=== PATIENT | female | born 1960 | race Caucasian/White ===

== ENCOUNTER → 2018-06-08 | Outpatient (REF) | payer BC ==
[2018-06-08 17:11] LABS: IMMUNOGLOBULIN A 47.5 MG/DL (70-400); IMMUNOGLOBULIN G 661 MG/DL (681-1648)
[2018-06-08 17:25] LABS: IMMUNOGLOBULIN M 15.3 MG/DL (40-230)
== END ==
LOC: M SFHCLERA 11:44
DX: R76.8 Other specified abnormal immunological findings in serum (principal)
CPT/HCPCS: 82784

== ENCOUNTER → 2018-06-18 | Outpatient (CLI) | payer BC | LOC: M RAD 10:19 | DX: Z12.31 Encounter for screening mammogram for malignant neoplasm of breast (principal); Z79.3 Long term (current) use of hormonal contraceptives | CPT/HCPCS: 77067 ==

== ENCOUNTER 2018-06-22 09:28 | Day surgery (SDC) | payer BC ==
[2018-06-22] MEDS: NS 1,000 ML IV (06:00)
[2018-06-22] MEDS ORDERED: PROPOFOL 500 MG/50 ML VIAL As Ordered (09:45)
[2018-06-22] MEDS ORDERED: LIDOCAINE 2% INJ 100 MG/5 ML SDV (FOR ANES.) As Ordered (09:57)
[2018-06-22] MEDS ORDERED: fentaNYL 100 MCG/2 ML INJECTION (J3010) As Ordered (09:58)
[2018-06-22] MEDS ORDERED: PANTOPRAZOLE 40MG INJ (PROTONIX) (C9113) IV (12:00)
== END 2018-06-22 12:30 | disposition home or self-care (01) ==
LOC: M OPP 09:28
DX: K59.00 Constipation, unspecified (principal); K64.8 Other hemorrhoids; R10.13 Epigastric pain; R14.0 Abdominal distension (gaseous); K25.9 Gastric ulcer, unspecified as acute or chronic, without hemorrhage or perforation; E78.5 Hyperlipidemia, unspecified; E05.90 Thyrotoxicosis, unspecified without thyrotoxic crisis or storm; E03.9 Hypothyroidism, unspecified; M19.90 Unspecified osteoarthritis, unspecified site; M54.2 Cervicalgia; F32.9 Major depressive disorder, single episode, unspecified; G43.909 Migraine, unspecified, not intractable, without status migrainosus; Z78.0 Asymptomatic menopausal state; G47.30 Sleep apnea, unspecified; G47.00 Insomnia, unspecified; R06.83 Snoring; M25.50 Pain in unspecified joint; J32.9 Chronic sinusitis, unspecified; Z92.3 Personal history of irradiation; F17.210 Nicotine dependence, cigarettes, uncomplicated; Z79.82 Long term (current) use of aspirin; Z79.899 Other long term (current) drug therapy; Z80.7 Family history of other malignant neoplasms of lymphoid, hematopoietic and related tissues
CPT/HCPCS: 45378

== ENCOUNTER → 2018-07-04 | Outpatient (REF) | payer BC ==
[2018-07-04 15:51] LABS: BASO % 0.7 % (0.0-1.0); EOS # 0.4 10^3/uL (0.0-0.50); EOS % 6.3 % (0.0-3.0); HEMATOCRIT 38.8 % (36.0-47.0); HEMOGLOBIN 12.9 g/dl (12.0-15.5); IMMATURE GRANULOCYTE % 0.2 % (0-3.0); LYMPH # 2.2 10^3/uL (1.5-4.5); LYMPH % 37.5 % (24.0-44.0); MEAN CORPUSCULAR HEMOGLOBIN 32.3 pg (27.0-33.0); MEAN CORPUSCULAR HGB CONC 33.2 g/dl (32.0-36.5); MEAN CORPUSCULAR VOLUME 97.2 fl (80.0-96.0); MONO # 0.4 10^3/uL (0.0-0.8); MONO % 7.3 % (0.0-5.0); NEUTROPHILS # 2.8 10^3/uL (1.8-7.7); PLATELET COUNT, AUTOMATED 271 10^3/uL (150-450); RED BLOOD COUNT 3.99 10^6/uL (4.00-5.40); WHITE BLOOD COUNT 5.7 10^3/uL (4.0-10.0)
[2018-07-04 16:01] LABS: ALBUMIN 3.8 GM/DL (3.2-5.2); ALBUMIN/GLOBULIN RATIO 1.31 (1.00-1.93); ALKALINE PHOSPHATASE 68 U/L (45-117); ALT/SGPT 30 U/L (12-78); ANION GAP 9 MEQ/L (8-16); AST/SGOT 18 U/L (7-37); BILIRUBIN,TOTAL 0.2 MG/DL (0.2-1.0); BLOOD UREA NITROGEN 11 MG/DL (7-18); CALCIUM LEVEL 8.6 MG/DL (8.5-10.1); CARBON DIOXIDE LEVEL 26 MEQ/L (21-32); CHLORIDE LEVEL 109 MEQ/L (98-107); CREATININE FOR GFR 0.74 MG/DL (0.55-1.30); GLOMERULAR FILTRATION RATE > 60.0 (>51); GLUCOSE, FASTING 84 MG/DL (70-100); POTASSIUM SERUM 4.5 MEQ/L (3.5-5.1); SODIUM LEVEL 144 MEQ/L (136-145); TOTAL PROTEIN 6.7 GM/DL (6.4-8.2)
== END ==
LOC: M LABNEURO 11:33
DX: R51 Headache (principal)
CPT/HCPCS: 80053

== ENCOUNTER 2018-09-20 10:12 | Day surgery (SDC) | payer BC ==
[2018-09-20] MEDS: NS 1,000 ML IV (10:15)
[2018-09-20] MEDS ORDERED: PROPOFOL 200 MG/20 ML VIAL As Ordered (10:50)
[2018-09-20] MEDS ORDERED: LIDOCAINE 2% INJ 100 MG/5 ML SDV (FOR ANES.) As Ordered (10:51)
[2018-09-20] MEDS ORDERED: fentaNYL 100 MCG/2 ML INJECTION (J3010) As Ordered (10:55)
== END 2018-09-20 12:40 | disposition home or self-care (01) ==
LOC: M OPP 10:12
DX: K25.9 Gastric ulcer, unspecified as acute or chronic, without hemorrhage or perforation (principal); E78.5 Hyperlipidemia, unspecified; E03.9 Hypothyroidism, unspecified; M12.9 Arthropathy, unspecified; F32.9 Major depressive disorder, single episode, unspecified; G47.30 Sleep apnea, unspecified; Z79.82 Long term (current) use of aspirin; Z79.899 Other long term (current) drug therapy; Z87.891 Personal history of nicotine dependence
CPT/HCPCS: 43239

== ENCOUNTER → 2018-10-29 | Outpatient (REF) | payer BC ==
[~2018-10-29] MED LIST: AFRI0.052; ASPI1TAB PO; ASTE0.15; BENA25CA4 PO; BIOT10008 PO; BUTA1CAP3 PO; CLAR1TAB13 PO; DICY20TA11; FISH7.5C PO; FLUTISP NARES; HYOS0.1258 PO; IBUP-1114 PO; LATA5OPD OU; LEVOTAB10; LUTE40CA2 PO; MELA10CA PO; MULT1TAB10 PO; PANT-23 PO; SIMV20TA2; SUDATAB15 PO; SYNT112T2; SYST0.4D2 OU; TOPA1TAB PO; TYLE1TAB5 PO; TYLE500T78 PO; XALA0.007 OP; [UNRECOGNIZED DRUG - CODE]
== END ==
LOC: M SFHCLERA 09:12
PROVIDERS: ATTEND Family Medicine
DX: E03.9 Hypothyroidism, unspecified (principal)

== ENCOUNTER → 2019-01-28 | Day surgery (SDC) | payer BC ==
[~2019-01-28] VITALS: Ht 172.7 cm; Wt 72.1 kg
[~2019-01-28] MED LIST changes: +L-LY500T PO; -LEVOTAB10; +LEVOTAB10 PO; +LIDOCAINE 2% INJ 100 MG/5 ML SDV (FOR ANES.) As Ordered ONE; +MAGN1TAB25 PO; +NS 1,000 ML IV ONE; +PROPOFOL 200 MG/20 ML VIAL As Ordered ONE; -SIMV20TA2; +SIMV20TA2 PO; -SYNT112T2; +SYNT112T2 PO; -XALA0.007 OP; +XALA0.007 OU
--- NOTE | 2019-01-28 13:13 | ROOR ---
Patient Name: Robby Duran Procedure Date: 01/28/2019 12:30 PM Date of : 1960 Age: 58 Room: [facility] Gender: Female Note Status: Finalized Procedure: Upper GI endoscopy Indications: Follow-up of gastric ulcer Providers: Jay Mehta MD Referring MD: Marcos THOMAS MD Requesting Provider: Medicines: Monitored Anesthesia Care Complications: No immediate complications. Procedure: Pre-Anesthesia Assessment: - Prior to the procedure, a History and Physical was performed, and patient medications and allergies were reviewed. The patient is competent. The risks and benefits of the procedure and the sedation options and risks were discussed with the patient. All questions were answered and informed consent was obtained. Patient identification and proposed procedure were verified by the physician, the nurse and the anesthesiologist in the procedure room. Mental Status Examination: alert and oriented. Airway Examination: normal oropharyngeal airway and neck mobility. Respiratory Examination: clear to auscultation. CV Examination: normal. Prophylactic Antibiotics: The patient does not require prophylactic antibiotics. Prior Anticoagulants: The patient has taken no previous anticoagulant or antiplatelet agents. ASA Grade Assessment: II - A patient with mild systemic disease. After reviewing the risks and benefits, the patient was deemed in satisfactory condition to undergo the procedure. The anesthesia plan was to use monitored anesthesia care (MAC). Immediately prior to administration of medications, the patient was re-assessed for adequacy to receive sedatives. The heart rate, respiratory rate, oxygen saturations, blood pressure, adequacy of pulmonary ventilation, and response to care were monitored throughout the procedure. The physical status of the patient was re-assessed after the procedure. The Endoscope was introduced through the mouth, and advanced to the second part of duodenum. The upper GI endoscopy was accomplished without difficulty. The patient tolerated the procedure well. Findings: The Z-line was regular and was found 40 cm from the incisors. A 10 mm healed ulcer was found in the gastric antrum. The scar tissue was healthy in appearance. Adjacent mucosal findings include congestion and erythema. Biopsies were taken with a cold forceps for histology. Verification of patient identification for the specimen was done by the physician and nurse using the patient's name, date and medical record number. Estimated blood loss was minimal. A benign-appearing, intrinsic moderate stenosis was found in the gastric antrum. This was traversed. The duodenal bulb and second portion of the duodenum were normal. Impression: - Z-line regular, 40 cm from the incisors. - Scar in the gastric antrum. Biopsied. 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 - Normal duodenal bulb and second portion of the duodenum. Recommendation: - Patient has a contact number available for emergencies. The signs and symptoms of potential delayed complications were discussed with the patient. Return to normal activities tomorrow. Written discharge instructions were provided to the patient. - Resume previous diet. - Continue present medications. - No ibuprofen, naproxen, or other non-steroidal anti-inflammatory drugs. - Use Protonix (pantoprazole) 40 mg PO daily for 3 months. - Await pathology results. - Do an upper GI series in 3 months to check if any evidence of obstruction to gastric out flow. - Repeat upper endoscopy in 3-6 months depending on the UGI results and based on clinical symptoms for possible balloon dilation of gastric antral stenosis. - Return to GI clinic in [facility] (address [address], [address], [place] [address]) in 3 months. Please call GI clinic @ [phone] for apppointment date and time. - Return to primary care physician. Jay Mehta MD Jay Mehta MD 01/28/2019 1:13:11 PM This report has been signed electronically. Number of Addenda: 0 Note Initiated On: 01/28/2019 12:30 PM Estimated Blood Loss: Estimated blood loss was minimal.
[2019-01-28 13:25] VITALS: BP 126/77
== END | disposition home or self-care (01) ==
LOC: M OPP 11:52
PROVIDERS: ATTEND Internal Medicine Gastroenterology
DX: K29.70 Gastritis, unspecified, without bleeding (principal); R10.13 Epigastric pain; G47.30 Sleep apnea, unspecified; J30.2 Other seasonal allergic rhinitis; Z79.82 Long term (current) use of aspirin; Z79.899 Other long term (current) drug therapy; Z72.0 Tobacco use

== ENCOUNTER → 2019-01-30 | Outpatient (REF) | payer BC ==
[~2019-01-30] MED LIST changes: -LIDOCAINE 2% INJ 100 MG/5 ML SDV (FOR ANES.) As Ordered ONE; -NS 1,000 ML IV ONE; -PROPOFOL 200 MG/20 ML VIAL As Ordered ONE
[2019-02-01 14:44] LABS: HPV HYBRID CAPTURE II Negative (Negative)
== END ==
LOC: M SFHCLERA 16:29
PROVIDERS: ATTEND Family Medicine
DX: Z12.4 Encounter for screening for malignant neoplasm of cervix (principal); N95.2 Postmenopausal atrophic vaginitis
CPT/HCPCS: 87624; G0123

== ENCOUNTER → 2019-04-26 | Outpatient (REF) | payer BC ==
[~2019-04-26] MED LIST changes: -ASPI1TAB PO; +ASPI81TA26 PO; +LATA0.0013 OU; -LATA5OPD OU; -MAGN1TAB25 PO; +MAGN1TAB26 PO
[2019-04-26 11:57] LABS: ALBUMIN 3.5 GM/DL (3.2-5.2); ALT/SGPT 32 U/L (12-78); BILIRUBIN,TOTAL 0.4 MG/DL (0.2-1.0); BLOOD UREA NITROGEN 10 MG/DL (7-18); CALCIUM LEVEL 8.1 MG/DL (8.5-10.1); CARBON DIOXIDE LEVEL 29 MEQ/L (21-32); CHLORIDE LEVEL 107 MEQ/L (98-107); CHOLESTEROL LEVEL 145 MG/DL (<200); CHOLESTEROL RISK RATIO 3.085 (<5); CREATININE FOR GFR 0.69 MG/DL (0.55-1.30); GLOMERULAR FILTRATION RATE > 60.0 (>51); GLUCOSE, FASTING 82 MG/DL (70-100); HDL CHOLESTEROL 47 MG/DL (>40); LDL CHOLESTEROL 82 MG/DL (<100); NON-HDL-C 98 MG/DL; POTASSIUM SERUM 4.4 MEQ/L (3.5-5.1); SODIUM LEVEL 139 MEQ/L (136-145); THYROID STIMULATING HORMONE 0.349 uIU/ML (0.358-3.740); TOTAL PROTEIN 6.7 GM/DL (6.4-8.2); TRIGLYCERIDES LEVEL 82 MG/DL (<150)
== END ==
LOC: M SFHCLERA 08:56
PROVIDERS: ATTEND Family Medicine
DX: E78.5 Hyperlipidemia, unspecified (principal)

== ENCOUNTER → 2019-06-18 | Outpatient (REF) | payer BC | LOC: M SFHCLERA 09:58 | PROVIDERS: ATTEND Family Medicine | DX: E03.9 Hypothyroidism, unspecified (principal) ==

== ENCOUNTER → 2019-06-18 | Outpatient (CLI) | payer BC ==
[2019-06-18 13:44] LABS: HEMATOCRIT 41.2 % (36.0-47.0); HEMOGLOBIN 13.8 g/dl (12.0-15.5); MEAN CORPUSCULAR HEMOGLOBIN 31.9 pg (27.0-33.0); MEAN CORPUSCULAR HGB CONC 33.5 g/dl (32.0-36.5); MEAN CORPUSCULAR VOLUME 95.2 fl (80.0-96.0); PLATELET COUNT, AUTOMATED 293 10^3/uL (150-450); RED BLOOD COUNT 4.33 10^6/uL (4.00-5.40); WHITE BLOOD COUNT 5.1 10^3/uL (4.0-10.0)
[2019-06-18 14:07] LABS: ALBUMIN 3.9 GM/DL (3.2-5.2); ALT/SGPT 44 U/L (12-78); BILIRUBIN,DIRECT < 0.1 MG/DL (0.0-0.2); BILIRUBIN,TOTAL 0.2 MG/DL (0.2-1.0); BLOOD UREA NITROGEN 11 MG/DL (7-18); CALCIUM LEVEL 9.3 MG/DL (8.5-10.1); CARBON DIOXIDE LEVEL 26 MEQ/L (21-32); CHLORIDE LEVEL 107 MEQ/L (98-107); CREATININE FOR GFR 0.66 MG/DL (0.55-1.30); GLOMERULAR FILTRATION RATE > 60.0 (>51); GLUCOSE, FASTING 79 MG/DL (70-100); PHOSPHORUS LEVEL 3.8 MG/DL (2.5-4.9); POTASSIUM SERUM 4.2 MEQ/L (3.5-5.1); SODIUM LEVEL 141 MEQ/L (136-145); TOTAL PROTEIN 7.2 GM/DL (6.4-8.2)
== END ==
LOC: M LRY 10:03
PROVIDERS: ATTEND Podiatrist Foot & Ankle Surgery
DX: B35.1 Tinea unguium (principal); Z79.899 Other long term (current) drug therapy

== ENCOUNTER → 2019-06-24 | Outpatient (CLI) | payer BC ==
--- NOTE | 2019-06-24 13:34 | REPMRS ---
Patient History The patient states she has not had a clinical breast exam in over a year. Patient is postmenopausal. Family history of lymphoma at age 78 in father. Took hormonal contraceptives for 6 years. Digital Mammo Screening Bilat: June 24, 2019 - Exam #: [id number] Bilateral CC and MLO view(s) were taken. Technologist: Marimar Dover, Technologist Prior study comparison: June 18, 2018, bilateral digital mammo screening bilat performed at [facility]. October 31, 2016, bilateral digital mammo screening bilat performed at [facility]. July 31, 2015, digital bilateral screening mammo, performed at [facility]. FINDINGS: There are scattered fibroglandular densities. There has been no change in the appearance of the mammogram from the prior studies. There is a mild amount of scattered fibroglandular density which is fairly symmetric. There is no interval development of dominant mass, architectural distortion, or grouped microcalcification suggestive of malignancy. 3-D tomosynthesis shows no additional findings. Assessment: BI-RADS/ACR category 1 mammogram. Negative Mammogram. Recommendation Routine screening mammogram of both breasts in 1 year (for women over age 40). This patient's Lifetime Breast Cancer Risk is estimated at 8.1 %. This mammogram was interpreted with the aid of an FDA-approved computer-aided dectection system. Electronically Signed By: Tj Manuel MD 06/24/19 [id number]
== END ==
LOC: M RAD 10:43
PROVIDERS: ATTEND Family Medicine
DX: Z12.31 Encounter for screening mammogram for malignant neoplasm of breast (principal); Z78.0 Asymptomatic menopausal state; Z92.0 Personal history of contraception; Z80.7 Family history of other malignant neoplasms of lymphoid, hematopoietic and related tissues

== ENCOUNTER → 2019-07-01 | Outpatient (CLI) | payer BC ==
[~2019-07-01] MED LIST changes: +E-Z-GAS II EFFERVESCENT PACKET (SODIUM BICARB./CITRIC ACID/SIMETHICONE) As Ordered ONE; +E-Z-HD 98% w/w 340GM SUSP BTL As Ordered ONE; +E-Z-PAQUE 96% w/w SUSP 176GM BTL As Ordered ONE
--- NOTE | 2019-07-01 15:12 | REP ---
Examination Requested: Upper G.I. Series With KUB Reason For Exam: Gastric ulcer Upper GI Air Contrast The procedure was performed by VALERIA Garcia, under the direct supervision of Dr. Otto. The images were reviewed with Dr. Otto. The carbonating stone cleaner film shows no organomegaly or pathological masses. The intestinal gas pattern appears normal. Liquid barium and gas producing crystals were given in the erect position as well as liquid barium in the prone oblique position in order to perform a double contrast upper GI examination. The oral and pharyngeal stages of deglutition were unremarkable. Esophageal transport is efficient and there is no esophagitis, stricture, or mucosal ring noted. There is no hiatal hernia. Gastroesophageal reflux was not visualized throughout the course of the exam. The stomach camarena are normally outlined. The rugal folds are smooth and regular. There is no gastritis, neoplasm, ulcer disease noted. The duodenal camarena are normally outlined. The mucosal folds are smooth and regular. There is no duodenitis, peptic ulcer disease, or neoplasm noted. The visualized portion of the proximal small bowel appears normal in course and caliber. Impression: 1. Unremarkable upper GI. 0.4 minutes of fluoroscopy time was utilized for this procedure. Some fluoroscopic images are performed with last image hold technology. These images require no additional radiation. Reviewed by VALERIA Schulte 07/01/2019 02:30 P Electronically Signed by Marcos Otto MD 07/01/2019 03:03 P
== END ==
LOC: M RAD 09:05
PROVIDERS: ATTEND Internal Medicine Gastroenterology
DX: K25.9 Gastric ulcer, unspecified as acute or chronic, without hemorrhage or perforation (principal)

== ENCOUNTER → 2020-01-22 | Outpatient (REF) | payer BC ==
[~2020-01-22] MED LIST changes: -E-Z-GAS II EFFERVESCENT PACKET (SODIUM BICARB./CITRIC ACID/SIMETHICONE) As Ordered ONE; -E-Z-HD 98% w/w 340GM SUSP BTL As Ordered ONE; -E-Z-PAQUE 96% w/w SUSP 176GM BTL As Ordered ONE; -L-LY500T PO; +L-LY500T15 PO; -SIMV20TA2 PO; +SIMV20TA22 PO
== END ==
LOC: M SFHCLERA 14:37
PROVIDERS: ATTEND Family Medicine
DX: F98.8 Other specified behavioral and emotional disorders with onset usually occurring in childhood and adolescence (principal)

== ENCOUNTER → 2020-03-30 | Outpatient (CLI) | payer BC ==
[~2020-03-30] MED LIST changes: +ADDE20CA3 PO; +ALLE180T33 PO; +AZEL1SPR3 NARES; +BIOT50004 PO; +CYMB1CAP4 PO; +DEXT5TAB3 PO; +FAMO20TA PO; +MELA10TA2 PO; +MULTCAP PO; +MYLA1SUS PO; +PERC5TAB12 PO; +TRAM50TA2 PO; +VITA500C19 PO
[2020-03-30 12:27] LABS: HEMATOCRIT 41.5 % (36.0-47.0); HEMOGLOBIN 14.1 g/dl (12.0-15.5); MEAN CORPUSCULAR HEMOGLOBIN 31.5 pg (27.0-33.0); MEAN CORPUSCULAR VOLUME 92.8 fl (80.0-96.0); PLATELET COUNT, AUTOMATED 313 10^3/uL (150-450); RED BLOOD COUNT 4.47 10^6/uL (4.00-5.40); WHITE BLOOD COUNT 5.4 10^3/uL (4.0-10.0)
[2020-03-30 12:50] LABS: INR 0.98; PROTHROMBIN TIME 12.7 SECONDS (11.8-14.0)
[2020-03-30 13:04] LABS: POTASSIUM SERUM 4.5 MEQ/L (3.5-5.1); THYROID STIMULATING HORMONE 0.809 uIU/ML (0.358-3.740)
== END ==
LOC: M LAB 11:42
PROVIDERS: ATTEND Orthopaedic Surgery Sports Medicine
DX: Z01.818 Encounter for other preprocedural examination (principal)

== ENCOUNTER → 2020-03-30 | Outpatient (CLI) | payer BC | LOC: M LABSMTC 13:07 | PROVIDERS: ATTEND Orthopaedic Surgery Sports Medicine | DX: Z01.818 Encounter for other preprocedural examination (principal); Z11.59 Encounter for screening for other viral diseases | CPT/HCPCS: C9803; U0002 ==

== ENCOUNTER 2020-04-01 09:33 | Day surgery (SDC) | payer BC ==
[~2020-04-01] VITALS: Ht 174 cm; Wt 86.1 kg
[~2020-04-01 09:33] MED LIST changes: +LR 1,000 ML IV ONE; +ceFAZolin SOD 2 GM in IV 1 EA IV ONE
--- NOTE | 2020-04-01 10:13 | ECGEPIP ---
[facility] Test Date: 2020-04-01 Pat Name: KELLEY KHAN Department: Room: - Gender: Female Coke Wheeler: WES : 1960 Requested By: JOSE GUADALUPE BLANCO Order Number: [id number] Reading MD: Mary Jo Huston Measurements Intervals [place] Rate: 93 P: 60 MS: 123 QRS: 42 QRSD: 78 T: 51 QT: 351 QTc: 437 Interpretive Statements SINUS RHYTHM NORMAL NO PRIOR Electronically Signed on 04-01-2020 10:12:29 EDT by Mary Jo Huston
[2020-04-01] MEDS ORDERED: propofoL 200 MG/20 ML VIAL As Ordered ONE (10:27)
[2020-04-01] MEDS ORDERED: LIDOCAINE 2% 100MG/5ML SDV (FOR ANES.) As Ordered ONE (10:27)
[2020-04-01] MEDS ORDERED: fentaNYL 100 MCG/2 ML INJECTION (J3010) As Ordered ONE (10:27)
[2020-04-01] MEDS ORDERED: MIDAZOLAM INJ 2MG/2ML VIAL (J2250 PER 1MG) As Ordered ONE (10:28)
[2020-04-01] MEDS ORDERED: BUPIVACAINE/EPIN 0.25% 30 ML VIAL As Ordered ONE (10:47)
[2020-04-01] MEDS ORDERED: ROCURONIUM BROMIDE 50 MG/5 ML VIAL As Ordered ONE (10:56)
[2020-04-01] MEDS ORDERED: dexameTHASONE 4 MG/ML 1ML VIAL (J1100 PER 1MG) As Ordered ONE (11:25)
[2020-04-01] MEDS ORDERED: ACETAMINOPHEN 1000MG 100ML IV BTL (OFIRMEV) (J0131 PER 10MG) As Ordered ONE (11:28)
[2020-04-01] MEDS ORDERED: METOCLOPRAMIDE INJ 10MG/2ML VIAL (J2765 PER 1) As Ordered ONE (11:37)
[2020-04-01] MEDS ORDERED: ONDANSETRON 4MG/2ML VIAL As Ordered ONE (11:37)
[2020-04-01] MEDS ORDERED: HYDROmorphone HCL 2 MG/ML 1ML VIAL (J1170) As Ordered ONE (11:38)
[2020-04-01] MEDS ORDERED: KETOROLAC 30 MG/ML 1ML VIAL IV PRN (13:00)
[2020-04-01] MEDS ORDERED: LR 1,000 ML IV SCH ×2 (13:00→13:15)
[2020-04-01] MEDS ORDERED: ONDANSETRON 4MG/2ML VIAL IV PRN ×2 (13:00→13:15)
[2020-04-01] MEDS ORDERED: METOCLOPRAMIDE INJ 10MG/2ML VIAL (J2765 PER 1) IV PRN (13:00)
[2020-04-01] MEDS: fentaNYL 100 MCG/2 ML INJECTION (J3010) IV PRN ×4 (13:05→13:20)
[2020-04-01] MEDS: PERCOCET 5MG/325MG TAB PO PRN ×2 (13:05→13:35)
[2020-04-01] MEDS ORDERED: PERCOCET 5MG/325MG TAB PO PRN (13:15)
[2020-04-01] MEDS ORDERED: MORPHINE 2 MG/ML 1ML VIAL (J2270) IV PRN (13:15)
[2020-04-01] MEDS ORDERED: ACETAMINOPHEN TAB 650MG DOSE (2X325MG) PO PRN (13:15)
--- NOTE | 2020-04-01 13:49 | REP ---
C-ARM VIEWS RIGHT WRIST: Three C-arm views right wrist performed. Metallic plate and screws are seen in the distal radius for a fracture at that location. The osseous structures appear well-aligned. 39 seconds of fluoroscopy time utilized. Electronically Signed by Marcos Rice MD 04/01/2020 04:44 P
[2020-04-01 15:40] VITALS: BP 138/81
--- NOTE | 2020-04-03 23:43 | RO ---
DATE OF PROCEDURE: 04/01/2020 PREOPERATIVE DIAGNOSIS: Right distal radius fracture. POSTOPERATIVE DIAGNOSIS: Right distal radius fracture. PLANNED PROCEDURE: Right distal radius and open reduction internal fixation. PROCEDURE PERFORMED: Right distal radius and open reduction internal fixation. SURGEON: Sincere Cabrera MD MANAGER FIXED INCOME: Nette Mcgrath PA-C SUPERVISOR CIGARETTE MAKING DEPARTMENT: Dr. Elena TYPE OF ANESTHETIC: General anesthetic. OPERATIVE PREAMBLE: This 59-year-old female sustained a right distal radius fracture. Attempted closed reduction and casting. Unfortunately, this was unstable in the cast and went on to further dorsal displacement. We talked about the pros and cons, the risks and benefits of nonoperative treatment versus open reduction internal fixation in the form of volar plate. She wished to go ahead, we signed the consent form for surgery. I reiterated the risks in preoperative holding, marked the right upper extremity and proceeded to surgical treatment. DESCRIPTION OF PROCEDURE: The patient was brought to the operating theatre, administered general anesthetic. She was placed supine on the operating room table. Hand table was used to the patient's right side. All bony prominences were padded. Sequential compression devices (SCDs) were used on the down legs. Tourniquet 18-inch was applied to the right upper extremity and appropriately padded. Bed was turned 90 degrees. Two grams IV access was administered. Limb was prepped and draped in the usual sterile fashion allowing over 3 minutes prep solution drying time. Intraoperative fluoroscopy was used. Preoperative time-out was performed confirming the site, the patient, and the surgery. Began by elevating the limb using a sterile Esmarch, exsanguinating the limb and inflating the tourniquet to 250 mmHg. I made a standard flexor carpi radialis (FCR ) longitudinal incision at the distal volar aspect of the wrist. I carried dissection down through the skin and subcutaneous tissue, achieving meticulous hemostasis. Incised the FCR tendon sheath as well as the subsheath in line with the incision. Retracted FPL muscle belly ulnarly and elevated the pronator quadratus off the volar aspect of the distal radius. Identified the fracture site. I did have to remove a moderate amount of fracture callus and carry this towards the dorsal side to disimpact the fracture. I achieved the reduction. I selected a Synthes free contour two-hole proximal VA locking volar distal radius plate. I placed an 8 mm screw in the proximal locking end of the plate. I then inserted the four distal fully threaded locking screws. There was a bit of a malreduction, so I removed this, and I re-reduced the fracture site and then used a cortical screw in the second from most radial hole. I ensured that these were out of the joints by taking AP, lateral and true 30-degree tilt lateral radiographs. Screws measured from 18 to 20 mm long. I also used a 1.25 mm K- wire in the plate, as well as a positional 2.4 mm cortical screw in the oblong hole and then readjusted the plate position a little bit proximally. Once I was satisfied with the reduction and screw placement distally, I then fully tightened down the cortical positional screw. Removed the K-wire. I then used a locking screw proximally 12 mm long and then took out the initial positional screw as it was long and inserted a 14 mm cortical screw. Final radiographs, AP, lateral and 30-degree tilt, the reduction appeared appropriate, volar tilt was restored of the distal radius articular surface. Appeared to be an extraarticular fracture. Pictures were saved onto the system. Tourniquet was taken down, wound thoroughly irrigated with normal saline. Subcutaneous tissues closed with interrupted #2-0 Vicryl and skin with running #3-0 Monocryl. 10 mL of 0.25% ropivacaine was used at the start of the case for local anesthetic. The skin was cleaned with a wet and dry dressing followed by application of Steri-Strips, Adaptic, 4x8 gauze, an ABD dressing, and overwrapped with sterile cast padding material below elbow, circumferential fashion. Volar plaster of Chikis slab was then placed and overwrapped with sterile 4 and 6-inch Rogers bandages in the usual fashion. The splint was allowed to fully harden. The patient was woken up from the general anesthetic, transferred off the operating table, and taken to the post-anesthesia care unit in stable condition. All sponge, needle, and instrument counts were correct. Estimated blood loss: 20 mL. No complications. PLAN: The patient is to be discharged home according to day-surgery criteria, and followup in the office in 2 weeks' time to remove the splint and transition to a removable wrist brace. She can start immediate finger and elbow exercises. She should elevate the limb and pain medicine will be called into her pharmacy of choice. Interlocking Pavement Installer instrumental in achieving reduction, holding instruments, and completing the case. OPHELIA
== END 2020-04-01 15:53 | disposition home or self-care (01) ==
LOC: M SDC 09:33
PROVIDERS: ATTEND Orthopaedic Surgery Sports Medicine
DX: S52.531A Colles' fracture of right radius, initial encounter for closed fracture (principal); X58.XXXA Exposure to other specified factors, initial encounter; Y92.89 Other specified places as the place of occurrence of the external cause; Y93.9 Activity, unspecified; Y99.9 Unspecified external cause status; I10 Essential (primary) hypertension; E78.49 Other hyperlipidemia; E03.9 Hypothyroidism, unspecified; K21.9 Gastro-esophageal reflux disease without esophagitis; Z79.899 Other long term (current) drug therapy; Z79.82 Long term (current) use of aspirin; G47.33 Obstructive sleep apnea (adult) (pediatric); F32.9 Major depressive disorder, single episode, unspecified; G43.909 Migraine, unspecified, not intractable, without status migrainosus; F17.290 Nicotine dependence, other tobacco product, uncomplicated
CPT/HCPCS: 25607; 76000; 93005; C1713; J0131; J0690; J1100; J1170; J1885; J2250; J2405; J2765; J3010

== ENCOUNTER → 2020-08-12 | Outpatient (CLI) | payer BC ==
[~2020-08-12] MED LIST changes: -LR 1,000 ML IV ONE; -ceFAZolin SOD 2 GM in IV 1 EA IV ONE
--- NOTE | 2020-08-12 15:36 | REPMRS ---
Patient History The patient states she has not had a clinical breast exam in over a year. Family history of unknown cancer at age 78 in father. Took hormonal contraceptives for 6 years. 3D TOMOSYNTHESIS WAS PERFORMED. [facility] lifetime risk for breast cancer is 7.8%. Vollaylaa density a. Digital Woman Screen Mammo: August 12, 2020 - Exam #: [id number] Bilateral CC and MLO view(s) were taken. Technologist: Irene Dan, Technologist Prior study comparison: June 24, 2019, bilateral digital mammo screening bilat, performed at [facility]. June 18, 2018, bilateral digital mammo screening bilat, performed at [facility]. FINDINGS: There are scattered fibroglandular densities. There has been no change in the appearance of the mammogram from the prior studies. There is a mild amount of residual fibroglandular tissue which is fairly symmetric. There is no interval development of dominant mass, architectural distortion, or clustered microcalcification suggestive of malignancy. Assessment: BI-RADS/ACR category 1 mammogram. Negative Mammogram. Recommendation Routine screening mammogram in 1 year (for women over age 40). This mammogram was interpreted with the aid of an FDA-approved computer-aided dectection system. Electronically Signed By: Marcos Rice MD 08/12/20 [id number]
== END ==
LOC: M WHC 14:29
PROVIDERS: ATTEND Family Medicine
DX: Z12.31 Encounter for screening mammogram for malignant neoplasm of breast (principal); Z80.9 Family history of malignant neoplasm, unspecified; Z92.0 Personal history of contraception

== ENCOUNTER 2020-09-02 08:04 | Outpatient (CLI) | payer BC ==
[~2020-09-02] VITALS: Ht 172.7 cm; Wt 81.6 kg
[~2020-09-02 08:04] MED LIST changes: +NS IV ONE; +TEPROTUMUMAB TRBW IV ONE
[2020-09-02 08:05] VITALS: BP_SYST 14; BP_SYST 145; BP_DIAS 90
[2020-09-02] MEDS ORDERED: methylPREDNISolone 250 MG in D5W 100 ML IV PRN (08:15)
[2020-09-02 08:58] VITALS: BP 136/78
[2020-09-02 10:00] VITALS: BP 138/80
[2020-09-02 10:24] VITALS: BP 128/78
[2020-09-02 11:30] VITALS: BP 128/72
== END 2020-09-02 11:30 | disposition home or self-care (01) ==
LOC: M INFU 08:04
PROVIDERS: ATTEND Ophthalmology
DX: E05.00 Thyrotoxicosis with diffuse goiter without thyrotoxic crisis or storm (principal)
CPT/HCPCS: 96365; J3241

== ENCOUNTER 2020-09-23 08:29 | Outpatient (CLI) | payer BC ==
[~2020-09-23] VITALS: Ht 172.7 cm; Wt 81.6 kg
[~2020-09-23 08:29] MED LIST changes: -NS IV ONE; -TEPROTUMUMAB TRBW IV ONE
[2020-09-23 08:30] VITALS: BP 143/86
[2020-09-23] MEDS ORDERED: NS IV ONE (08:30)
[2020-09-23] MEDS ORDERED: TEPROTUMUMAB TRBW IV ONE (08:30)
[2020-09-23] MEDS ORDERED: methylPREDNISolone 250 MG in D5W 100 ML IV PRN (08:30)
[2020-09-23 09:35] VITALS: BP 143/86
[2020-09-23 10:05] VITALS: BP 142/78
[2020-09-23] MEDS ORDERED: SUCR1SS PO (11:10)
[2020-09-23] MEDS ORDERED: TEPR500V IV (11:16)
[2020-09-23 11:28] VITALS: BP 136/75
[2020-09-23 11:45] VITALS: BP 142/82
== END 2020-09-23 11:45 | disposition home or self-care (01) ==
LOC: M INFU 08:29
PROVIDERS: ATTEND Ophthalmology
DX: E05.00 Thyrotoxicosis with diffuse goiter without thyrotoxic crisis or storm (principal)
CPT/HCPCS: 96365; 96366; J3241

== ENCOUNTER 2020-10-14 08:07 | Outpatient (CLI) | payer BC ==
[~2020-10-14] VITALS: Ht 172.7 cm; Wt 84.9 kg
[~2020-10-14 08:07] MED LIST changes: +NS IV ONE; +SUCR1SS PO; +TEPR500V IV; +TEPROTUMUMAB TRBW IV ONE; +methylPREDNISolone 250 MG in D5W 100 ML IV PRN
[2020-10-14 08:25] VITALS: BP 152/88
[2020-10-14 10:50] VITALS: BP 149/86
== END 2020-10-14 10:50 | disposition home or self-care (01) ==
LOC: M INFU 08:07
PROVIDERS: ATTEND Ophthalmology
DX: E05.00 Thyrotoxicosis with diffuse goiter without thyrotoxic crisis or storm (principal)
CPT/HCPCS: 96365; J3241

== ENCOUNTER 2020-11-04 08:39 | Outpatient (CLI) | payer BC ==
[~2020-11-04] VITALS: Ht 172.7 cm; Wt 81.6 kg
[~2020-11-04 08:39] MED LIST changes: -NS IV ONE; -TEPROTUMUMAB TRBW IV ONE; -methylPREDNISolone 250 MG in D5W 100 ML IV PRN
[2020-11-04 08:45] VITALS: BP 143/78
[2020-11-04] MEDS ORDERED: NS IV ONE (09:00)
[2020-11-04] MEDS ORDERED: methylPREDNISolone 250 MG in D5W 100 ML IV PRN (09:00)
[2020-11-04] MEDS ORDERED: TEPROTUMUMAB TRBW IV ONE (09:00)
[2020-11-04 10:45] VITALS: BP 116/76
[2020-11-04 11:40] VITALS: BP 154/88
== END 2020-11-04 11:40 | disposition home or self-care (01) ==
LOC: M INFU 08:39
PROVIDERS: ATTEND Ophthalmology
DX: E05.00 Thyrotoxicosis with diffuse goiter without thyrotoxic crisis or storm (principal)
CPT/HCPCS: 96365; 96366; J3241

== ENCOUNTER → 2020-12-20 | Outpatient (CLI) | payer BC ==
[~2020-12-20] MED LIST changes: +ALL10TAB3 PO
== END ==
LOC: M LABSMTC 09:35
PROVIDERS: ATTEND Anesthesiology
DX: Z01.812 Encounter for preprocedural laboratory examination (principal); Z20.822 Contact with and (suspected) exposure to COVID-19

== ENCOUNTER → 2021-01-14 | Outpatient (CLI) | payer BC ==
[~2021-01-14] MED LIST changes: +APPLTAB2 PO; +CYMB1CAP5 PO; +HM P99TA PO; +L-LY500T14 PO; +LUTE6CAP9 PO; +OMEG1CAP16 PO; +PROT1TAB2 PO; +VITMTA PO
== END ==
LOC: M LABSMTC 11:25
PROVIDERS: ATTEND Anesthesiology
DX: Z01.812 Encounter for preprocedural laboratory examination (principal); Z20.822 Contact with and (suspected) exposure to COVID-19

== ENCOUNTER 2021-01-19 06:10 | Day surgery (SDC) | payer BC ==
[~2021-01-19] VITALS: Ht 174 cm; Wt 83.4 kg
[2021-01-19] MEDS ORDERED: MIDAZOLAM INJ 2MG/2ML VIAL (J2250 PER 1MG) As Ordered ONE (06:59)
[2021-01-19] MEDS ORDERED: fentaNYL 100 MCG/2 ML INJECTION (J3010) As Ordered ONE (06:59)
[2021-01-19] MEDS ORDERED: propofoL 200 MG/20 ML VIAL As Ordered ONE ×2 (07:00→08:02)
[2021-01-19] MEDS ORDERED: dexameTHASONE 4 MG/ML 1ML VIAL (J1100 PER 1MG) As Ordered ONE (07:00)
[2021-01-19] MEDS ORDERED: LIDOCAINE 2% 100MG/5ML SDV (FOR ANES.) As Ordered ONE (07:00)
[2021-01-19] MEDS ORDERED: NS 1,000 ML IV ONE (07:00)
[2021-01-19] MEDS ORDERED: LR 1,000 ML IV ONE (07:00)
[2021-01-19] MEDS ORDERED: ONDANSETRON 4MG/2ML VIAL As Ordered ONE (07:00)
[2021-01-19] MEDS ORDERED: SIMETHICONE 40MG/0.6ML DROPS 30ML As Ordered ONE (07:12)
[2021-01-19] MEDS ORDERED: GLYCOPYRROLATE INJ 0.2 MG/ML 2 ML VIAL As Ordered ONE (07:36)
[2021-01-19] MEDS ORDERED: ISOVUE-300 61% 50ML VIAL As Ordered ONE (07:36)
[2021-01-19] MEDS ORDERED: METOCLOPRAMIDE INJ 10MG/2ML VIAL (J2765 PER 1) As Ordered ONE (08:09)
--- NOTE | 2021-01-19 08:51 | REP ---
INDICATION: EGD DILATE WITH FLUOROSCOPY. COMPARISON: None. TECHNIQUE: Intraoperative fluoroscopic imaging using portable C-arm technique. FINDINGS: Images demonstrate balloon dilatation in the right upper quadrant. Total fluoroscopic time 38 seconds. IMPRESSION: Status post endoscopic balloon dilatation <Electronically signed by Alex Dennison > 01/19/21 0849
--- NOTE | 2021-01-19 09:12 | ROOR ---
Patient Name: Robby Duarn Procedure Date: 01/19/2021 7:20 AM Date of : 1960 Age: 60 Room: Main OR Gender: Female Note Status: Finalized Procedure: Upper GI endoscopy Indications: For therapy of prepyloric stenosis Providers: Jay Mehta MD Referring MD: Rodriguez Mcrae DO Requestdebra Provider: Medicines: Monitored Anesthesia Care Complications: No immediate complications. Procedure: Pre-Anesthesia Assessment: - Prior to the procedure, a History and Physical was performed, and patient medications and allergies were reviewed. The patient is competent. The risks and benefits of the procedure and the sedation options and risks were discussed with the patient. All questions were answered and informed consent was obtained. Patient identification and proposed procedure were verified by the physician, the nurse and the anesthesiologist in the procedure room. Mental Status Examination: alert and oriented. Airway Examination: normal oropharyngeal airway and neck mobility. Respiratory Examination: clear to auscultation. CV Examination: normal. Prophylactic Antibiotics: The patient does not require prophylactic antibiotics. Prior Anticoagulants: The patient has taken no previous anticoagulant or antiplatelet agents. After reviewing the risks and benefits, the patient was deemed in satisfactory condition to undergo the procedure. The anesthesia plan was to use monitored anesthesia care (MAC). Immediately prior to administration of medications, the patient was re-assessed for adequacy to receive sedatives. The heart rate, respiratory rate, oxygen saturations, blood pressure, adequacy of pulmonary ventilation, and response to care were monitored throughout the procedure. The physical status of the patient was re-assessed after the procedure. The Endoscope was introduced through the mouth, and advanced to the second part of duodenum. The upper GI endoscopy was accomplished without difficulty. The patient tolerated the procedure well. Findings: No gross lesions were noted in the entire esophagus. A benign-appearing, intrinsic severe stenosis was found in the prepyloric region of the stomach. This was traversed. Biopsies were taken with a cold forceps for histology. Verification of patient identification for the specimen was done by the physician and nurse using the patient's name, date and medical record number. Estimated blood loss was minimal. A TTS dilator was passed through the scope. Dilation with a 12-13.5-15 mm and an 18-19-20 mm pyloric balloon dilator was performed under fluoroscopic guidance. The dilation site was examined and showed moderate mucosal disruption, moderate improvement in luminal narrowing, no bleeding and no perforation. No gross lesions were noted in the duodenal bulb and in the second portion of the duodenum. Impression: - No gross lesions in esophagus. 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 Biopsied. Dilated. - No gross lesions in the duodenal bulb and in the second portion of the duodenum. Recommendation: - Patient has a contact number available for emergencies. The signs and symptoms of potential delayed complications were discussed with the patient. Return to normal activities tomorrow. Written discharge instructions were provided to the patient. - Clear liquid diet today, then advance as tolerated to chopped diet and mechanical soft diet. - Continue present medications. - Use Protonix (pantoprazole) 40 mg PO twice daily - to be taken in morning (1/2 hour before breakfast) and at bedtime ( atleast 3 hours after last meal) for 3 months. - Use sucralfate suspension 1 gram PO QID for 4 weeks. - No ibuprofen, naproxen, or other non-steroidal anti-inflammatory drugs for 4 weeks. - Await pathology results. - Repeat upper endoscopy in 3 months for retreatment. - Telephone GI clinic for pathology results in 2 weeks. - Return to primary care physician. Procedure Code(s): --- Professional --- 83167, Esophagogastroduodenoscopy, flexible, transoral; with dilation of gastric/duodenal stricture(s) (eg, balloon, bougie) 98108, 59, Esophagogastroduodenoscopy, flexible, transoral; with biopsy, single or multiple 85741, 26, Intraluminal dilation of strictures and/or obstructions (eg, esophagus), radiological supervision and interpretation Diagnosis Code(s): --- Professional --- K31.1, Adult hypertrophic pyloric stenosis K31.89, Other diseases of stomach and duodenum CPT copyright 2019 [employer]. All rights reserved. The codes documented in this report are preliminary and upon fire prevention research engineer review may be revised to meet current compliance requirements. Jay Mehta MD Jay Mehta MD 01/19/2021 9:12:43 AM Electronically signed by Jay Mehta MD Number of Addenda: 0 Note Initiated On: 01/19/2021 7:20 AM Estimated Blood Loss: Estimated blood loss was minimal.
[2021-01-19] MEDS ORDERED: LR 1,000 ML IV SCH (09:15)
[2021-01-19] MEDS ORDERED: ONDANSETRON 4MG/2ML VIAL IV PRN (09:15)
[2021-01-19 09:20] VITALS: BP 129/60
== END 2021-01-19 09:27 | disposition home or self-care (01) ==
LOC: M SDC 06:10
PROVIDERS: ATTEND Internal Medicine Gastroenterology
DX: K31.1 Adult hypertrophic pyloric stenosis (principal); K31.89 Other diseases of stomach and duodenum; R11.2 Nausea with vomiting, unspecified; I10 Essential (primary) hypertension; E78.5 Hyperlipidemia, unspecified; E03.9 Hypothyroidism, unspecified; K21.9 Gastro-esophageal reflux disease without esophagitis; G47.33 Obstructive sleep apnea (adult) (pediatric); F17.290 Nicotine dependence, other tobacco product, uncomplicated; Z79.82 Long term (current) use of aspirin; Z79.899 Other long term (current) drug therapy
CPT/HCPCS: 43239; 43245; 76000; 88305; J1100; J2250; J2405; J2765; J3010; Q9967

== ENCOUNTER 2021-04-27 07:05 | Outpatient (CLI) | payer BC ==
[~2021-04-27] VITALS: Ht 172.7 cm; Wt 81.6 kg
[~2021-04-27 07:05] MED LIST changes: -HM P99TA PO; +POTA99TA14 PO; +methylPREDNISolone 250 MG in D5W 100 ML IV PRN
[2021-04-27] MEDS ORDERED: NS IV ONE (07:15)
[2021-04-27] MEDS ORDERED: TEPROTUMUMAB TRBW IV ONE (07:15)
[2021-04-27 07:16] VITALS: BP 130/79
[2021-04-27 07:21] VITALS: BP 130/79
[2021-04-27 09:30] VITALS: BP 128/76
== END 2021-04-27 09:30 | disposition home or self-care (01) ==
LOC: M INFU 07:05
PROVIDERS: ATTEND Ophthalmology
DX: E05.00 Thyrotoxicosis with diffuse goiter without thyrotoxic crisis or storm (principal)
CPT/HCPCS: 96413; J3241

== ENCOUNTER 2021-06-08 07:15 | Outpatient (CLI) | payer BC ==
[~2021-06-08] VITALS: Ht 172.7 cm; Wt 81.6 kg
[~2021-06-08 07:15] MED LIST changes: +NS IV ONE; +TEPROTUMUMAB TRBW IV ONE
[2021-06-08 07:27] VITALS: BP 156/76
[2021-06-08 09:50] VITALS: BP 156/76
== END 2021-06-08 10:00 | disposition home or self-care (01) ==
LOC: M INFU 07:15
PROVIDERS: ATTEND Ophthalmology
DX: E05.00 Thyrotoxicosis with diffuse goiter without thyrotoxic crisis or storm (principal)
CPT/HCPCS: 96365; J3241

== ENCOUNTER 2021-06-29 07:18 | Outpatient (CLI) | payer BC ==
[~2021-06-29] VITALS: Ht 172.7 cm; Wt 81.6 kg
[~2021-06-29 07:18] MED LIST changes: -methylPREDNISolone 250 MG in D5W 100 ML IV PRN
[2021-06-29 07:25] VITALS: BP 140/86
[2021-06-29 07:34] VITALS: BP 140/86
[2021-06-29 09:25] VITALS: BP 134/77
== END 2021-06-29 09:25 | disposition home or self-care (01) ==
LOC: M INFU 07:18
PROVIDERS: ATTEND Ophthalmology
DX: H05.242 Constant exophthalmos, left eye (principal)
CPT/HCPCS: 96365; J3241

== ENCOUNTER → 2021-08-12 | Outpatient (CLI) | payer BC ==
[~2021-08-12] MED LIST changes: -NS IV ONE; -TEPROTUMUMAB TRBW IV ONE
== END ==
LOC: M LABSMTC 09:21
PROVIDERS: ATTEND Anesthesiology
DX: Z01.812 Encounter for preprocedural laboratory examination (principal)

== ENCOUNTER 2021-08-17 10:41 | Day surgery (SDC) | payer BC ==
[~2021-08-17] VITALS: Ht 172.7 cm; Wt 80.7 kg
[~2021-08-17 10:41] MED LIST changes: +NS 1,000 ML IV ONE
[2021-08-17] MEDS ORDERED: LIDOCAINE 2% MDV 20ML VIAL As Ordered ONE (11:21)
[2021-08-17] MEDS ORDERED: propofoL 200 MG/20 ML VIAL As Ordered ONE (11:21)
[2021-08-17] MEDS ORDERED: fentaNYL 100 MCG/2 ML INJECTION (J3010) As Ordered ONE (11:22)
[2021-08-17] MEDS ORDERED: OCUV1CAP4 PO (11:28)
[2021-08-17] MEDS ORDERED: CLAR1TAB13 PO (11:28)
--- NOTE | 2021-08-17 12:53 | ROOR ---
Patient Name: Robby Duran Procedure Date: 08/17/2021 12:15 PM Date of : 1960 Age: 61 Room: [facility] Gender: Female Note Status: Finalized Procedure: Upper GI endoscopy Indications: For therapy of prepyloric stenosis, For therapy of pyloric stenosis Providers: Jay Mehta MD Referring MD: Rodriguez Mcrae DO [place]bra Provider: Medicines: Monitored Anesthesia Care Complications: No immediate complications. Procedure: Pre-Anesthesia Assessment: - Prior to the procedure, a History and Physical was performed, and patient medications and allergies were reviewed. The patient is competent. The risks and benefits of the procedure and the sedation options and risks were discussed with the patient. All questions were answered and informed consent was obtained. Patient identification and proposed procedure were verified by the physician, the nurse and the anesthesiologist in the procedure room. Mental Status Examination: alert and oriented. Airway Examination: normal oropharyngeal airway and neck mobility. Respiratory Examination: clear to auscultation. CV Examination: normal. Prophylactic Antibiotics: The patient does not require prophylactic antibiotics. Prior Anticoagulants: The patient has taken no previous anticoagulant or antiplatelet agents. ASA Grade Assessment: II - A patient with mild systemic disease. After reviewing the risks and benefits, the patient was deemed in satisfactory condition to undergo the procedure. The anesthesia plan was to use monitored anesthesia care (MAC). Immediately prior to administration of medications, the patient was re-assessed for adequacy to receive sedatives. The heart rate, respiratory rate, oxygen saturations, blood pressure, adequacy of pulmonary ventilation, and response to care were monitored throughout the procedure. The physical status of the patient was re-assessed after the procedure. The Endoscope was introduced through the mouth, and advanced to the second part of duodenum. The upper GI endoscopy was accomplished without difficulty. The patient tolerated the procedure well. Findings: LA Grade B (one or more mucosal breaks greater than 5 mm, not extending between the tops of two mucosal folds) esophagitis with no bleeding was found in the distal esophagus. A benign-appearing, intrinsic severe stenosis was found in the prepyloric region of the stomach. This was traversed. A TTS dilator was passed through the scope. Dilation with an 18-19-20 mm balloon dilator was performed to 18 mm. The dilation site was examined and showed moderate mucosal disruption, moderate improvement in luminal narrowing and no perforation. For hemostasis, one hemostatic clip was successfully placed. There was no bleeding at the end of the procedure. A large amount of food (residue) was found in the gastric fundus and in the gastric body. No gross lesions were noted in the duodenal bulb and in the second portion of the duodenum. Impression: - LA Grade B reflux esophagitis. 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 Dilated. Clip was placed. - A large amount of food (residue) in the stomach. - No gross lesions in the duodenal bulb and in the second portion of the duodenum. - No specimens collected. Recommendation: - Patient has a contact number available for emergencies. The signs and symptoms of potential delayed complications were discussed with the patient. Return to normal activities tomorrow. Written discharge instructions were provided to the patient. - Clear liquid diet for 1 day, then advance as tolerated to mechanical soft diet and soft diet. - Continue present medications. - Use Protonix (pantoprazole) 40 mg PO BID for 6 weeks. - Use sucralfate suspension 1 gram PO QID for 4 weeks. - Return to GI clinic in [facility] (address: [id number] [place] [address], [address] [place] [id number]) in 4 -- 6 weeks. Please call GI clinic @ [phone] for apppointment date and time. - Return to primary care physician. Procedure Code(s): --- Professional --- 46395, Esophagogastroduodenoscopy, flexible, transoral; with dilation of gastric/duodenal stricture(s) (eg, balloon, bougie) Diagnosis Code(s): --- Professional --- K21.0, Gastro-esophageal reflux disease with esophagitis K31.1, Adult hypertrophic pyloric stenosis K31.89, Other diseases of stomach and duodenum CPT copyright 2019 [employer]. All rights reserved. The codes documented in this report are preliminary and upon criminal justice instructor review may be revised to meet current compliance requirements. Jay Mehta MD Jay Mehta MD 08/17/2021 12:53:17 PM Electronically signed by Jay Mehta MD Number of Addenda: 0 Note Initiated On: 08/17/2021 12:15 PM Estimated Blood Loss: Estimated blood loss was minimal.
[2021-08-17 13:00] VITALS: BP 116/71
== END 2021-08-17 13:13 | disposition home or self-care (01) ==
LOC: M OPP 10:41
PROVIDERS: ATTEND Internal Medicine Gastroenterology
DX: K21.00 Gastro-esophageal reflux disease with esophagitis, without bleeding (principal); K31.89 Other diseases of stomach and duodenum; K31.1 Adult hypertrophic pyloric stenosis; E05.90 Thyrotoxicosis, unspecified without thyrotoxic crisis or storm; G47.30 Sleep apnea, unspecified; Z79.82 Long term (current) use of aspirin; Z79.899 Other long term (current) drug therapy; Z87.891 Personal history of nicotine dependence
CPT/HCPCS: 43245; J3010

== ENCOUNTER → 2022-01-01 | Outpatient (CLI) | payer BC ==
[~2022-01-01] MED LIST changes: +BAYE81TA7 PO; +COQ1200C3 PO; -DICY20TA11; +DICY20TA20; +IBUP200C25 PO; +LUTE20CA8 PO; +MV-M1TAB13 PO; -NS 1,000 ML IV ONE; +OCUV1CAP4 PO; +OMEG100011 PO; +SYNT175T2 PO; +VITATAB73 PO
== END ==
LOC: M LABSMTC 12:34
PROVIDERS: ATTEND Anesthesiology
DX: Z01.818 Encounter for other preprocedural examination (principal); Z11.52 Encounter for screening for COVID-19

== ENCOUNTER 2022-01-06 11:51 | Day surgery (SDC) | payer BC ==
[~2022-01-06] VITALS: Ht 172.7 cm; Wt 86.1 kg
[~2022-01-06 11:51] MED LIST changes: +NS 1,000 ML IV ONE
[2022-01-06] MEDS ORDERED: propofoL 200 MG/20 ML VIAL As Ordered ONE (13:23)
[2022-01-06] MEDS ORDERED: LIDOCAINE 2% 100MG/5ML SDV (FOR ANES.) As Ordered ONE (13:23)
[2022-01-06 14:00] VITALS: BP 142/81
== END 2022-01-06 14:16 | disposition home or self-care (01) ==
LOC: M OPP 11:51
PROVIDERS: ATTEND Internal Medicine Gastroenterology
DX: K21.00 Gastro-esophageal reflux disease with esophagitis, without bleeding (principal); K31.1 Adult hypertrophic pyloric stenosis; R10.13 Epigastric pain; Z79.899 Other long term (current) drug therapy; Z86.39 Personal history of other endocrine, nutritional and metabolic disease; Z92.3 Personal history of irradiation; Z87.891 Personal history of nicotine dependence

== ENCOUNTER → 2022-06-30 | Outpatient (CLI) | payer BC ==
[~2022-06-30] MED LIST changes: +CETI10CA2 PO; +FISH10005 PO; -FISH7.5C PO; -NS 1,000 ML IV ONE; +SUMA50TA2
== END ==
LOC: M LABSMTC 09:19
PROVIDERS: ATTEND Anesthesiology
DX: Z01.812 Encounter for preprocedural laboratory examination (principal); Z11.52 Encounter for screening for COVID-19

== ENCOUNTER 2022-07-05 11:00 | Day surgery (SDC) | payer BC ==
[~2022-07-05] VITALS: Ht 172.7 cm; Wt 88.0 kg
[~2022-07-05 11:00] MED LIST changes: +NS 1,000 ML IV ONE
[2022-07-05] MEDS ORDERED: LIDOCAINE 2% 100MG/5ML SDV (FOR ANES.) As Ordered ONE (12:49)
[2022-07-05] MEDS ORDERED: propofoL 200 MG/20 ML VIAL As Ordered ONE ×2 (12:49→12:53)
[2022-07-05] MEDS ORDERED: METOPROLOL 5 MG/5 ML VIAL As Ordered ONE (12:49)
[2022-07-05 13:20] VITALS: BP 141/79
== END 2022-07-05 13:32 | disposition home or self-care (01) ==
LOC: M OPP 11:00
PROVIDERS: ATTEND Surgery
DX: K21.00 Gastro-esophageal reflux disease with esophagitis, without bleeding (principal); K31.1 Adult hypertrophic pyloric stenosis; E05.00 Thyrotoxicosis with diffuse goiter without thyrotoxic crisis or storm; K25.9 Gastric ulcer, unspecified as acute or chronic, without hemorrhage or perforation; E78.00 Pure hypercholesterolemia, unspecified; G47.33 Obstructive sleep apnea (adult) (pediatric); F17.200 Nicotine dependence, unspecified, uncomplicated; Z79.2 Long term (current) use of antibiotics; Z79.51 Long term (current) use of inhaled steroids; Z79.899 Other long term (current) drug therapy; Z80.49 Family history of malignant neoplasm of other genital organs; Z80.7 Family history of other malignant neoplasms of lymphoid, hematopoietic and related tissues

== ENCOUNTER → 2022-07-17 | Outpatient (CLI) | payer BC ==
[~2022-07-17] MED LIST changes: +ACET32TAB PO; +CLAR10CA3 PO; +LEVO2TA PO; -NS 1,000 ML IV ONE; -SUMA50TA2; +SUMA50TA2 PO
== END ==
LOC: M EKG 11:16
PROVIDERS: ATTEND Anesthesiology
DX: Z01.810 Encounter for preprocedural cardiovascular examination (principal); R00.0 Tachycardia, unspecified

== ENCOUNTER → 2022-07-17 | Outpatient (CLI) | payer BC | LOC: M LABSMTC 11:06 | PROVIDERS: ATTEND Anesthesiology | DX: Z01.812 Encounter for preprocedural laboratory examination (principal); Z11.52 Encounter for screening for COVID-19 ==

== ENCOUNTER → 2023-03-07 | Outpatient (CLI) | payer BC ==
[~2023-03-07] MED LIST changes: +FLUT50SP17 NARES; -FLUTISP NARES
== END ==
LOC: M WHC 09:34
PROVIDERS: ATTEND Family Medicine
DX: Z12.31 Encounter for screening mammogram for malignant neoplasm of breast (principal)

== ENCOUNTER → 2024-06-25 | Outpatient (CLI) | payer BC ==
[~2024-06-25] MED LIST changes: -BIOT50004 PO; +BIOT5CAP8 PO; -FLUT50SP17 NARES; +FLUTISP NARES
[2024-06-25 11:04] LABS: ALBUMIN 3.6 G/DL (3.2-5.2); ALKALINE PHOSPHATASE 85 U/L (46-116); ALT/SGPT 37 U/L (7.0-40); AST/SGOT 19 U/L (<34); BILIRUBIN,TOTAL 0.4 MG/DL (0.3-1.2); BLOOD UREA NITROGEN 13 MG/DL (9-23); CALCIUM LEVEL 9.2 MG/DL (8.3-10.6); CARBON DIOXIDE LEVEL 28 MMOL/L (20-31); CHLORIDE LEVEL 106 MMOL/L (98-107); CHOLESTEROL LEVEL 177 MG/DL (<200); CHOLESTEROL RISK RATIO 4.34 (<5); CREATININE FOR GFR 0.79 MG/DL (0.55-1.30); GLOMERULAR FILTRATION RATE > 60.0 (>45); GLUCOSE, FASTING 81 MG/DL (74-106); HDL CHOLESTEROL 40.7 MG/DL (>40); LDL CHOLESTEROL 104.9 MG/DL (<100); NON-HDL-C 136.3 MG/DL; POTASSIUM SERUM 4.5 MMOL/L (3.5-5.1); SODIUM LEVEL 137 MMOL/L (136-145); TOTAL PROTEIN 6.4 G/DL (5.7-8.2); TRIGLYCERIDES LEVEL 157 MG/DL (<150)
[2024-06-25 11:05] LABS: THYROID STIMULATING HORMONE 4.048 uIU/ML (0.55-4.78)
== END ==
LOC: M LAB 10:07
PROVIDERS: ATTEND Family Medicine
DX: E03.9 Hypothyroidism, unspecified (principal); E78.5 Hyperlipidemia, unspecified

== ENCOUNTER → 2024-07-11 | Outpatient (CLI) | payer BC ==
[~2024-07-11] MED LIST changes: -HYOS0.1258 PO; +HYOS0.1289 PO
== END ==
LOC: M WHC 12:47
PROVIDERS: ATTEND Family Medicine
DX: Z12.31 Encounter for screening mammogram for malignant neoplasm of breast (principal)

== ENCOUNTER → 2025-07-31 | Outpatient (CLI) | payer BC ==
[~2025-07-31] MED LIST changes: -HYOS0.1289 PO; +HYOS0.1297 PO; -VITA500C19 PO; +VITA500C22 PO
== END ==
LOC: M WHC 13:44
PROVIDERS: ATTEND Family Medicine
DX: Z12.31 Encounter for screening mammogram for malignant neoplasm of breast (principal)